=== PATIENT | male | born 1980 | race Caucasian/White ===

== ENCOUNTER 2018-07-23 10:20 | Outpatient (CLI) | payer OTHER | END 2018-07-23 10:21 | disposition home or self-care (01) | LOC: BICRAD 10:20 | PROVIDERS: ATTEND Physician Assistant | DX: S96.912A Strain of unspecified muscle and tendon at ankle and foot level, left foot, initial encounter (principal) ==

== ENCOUNTER 2018-11-18 23:10 | Emergency (ER) | payer OTHER ==
[2018-11-18] MEDS ORDERED: Adacel (T-DAP) 0.5 ML SYRINGE ONE (23:36)
[2018-11-19 00:20] LABS: HIV (1/2) Antibody/Antigen Non-Reactive (NonReactive); Hep C IgG Ab Non-Reactive (NonReactive); Hep C Index 0.06 S/CO (0-0.79)
[2018-11-19 01:15] LABS: HBSAB Concentration 58.33 mIU/mL; Hep B Surf AB Reactive (NonReactive)
== END 2018-11-18 23:36 | disposition home or self-care (01) ==
LOC: ERS 23:10
DX: Z77.21 Contact with and (suspected) exposure to potentially hazardous body fluids (principal)
CPT/HCPCS: 36415; 86706; 86803; 87389; 90471; 90715